=== PATIENT | male | born 1935 | race Caucasian/White ===

== ENCOUNTER → 2018-06-12 12:18 | Outpatient (CLI) | payer MEDICARE, SELFPAY ==
[2017-01-26 07:49] VITALS: BMI 34.6
--- NOTE | 2018-06-12 10:15 | LES_PTH ---
PATIENT: NICOLE CARRASCO LOC: [facility] U#:[id number] AGE/SX: 89/M ROOM: RE06/12/[address]: Dr. Ever Suarez MD : [id number] BED: DIS: SPEC #: [id number] RECD: 06/12/18 12:02 STATUS: CUAUHTEMOC BETITO #: [id number] DRAGAN: 06/12/18 10:[address]: Ever Suarez DEPT: SURGICAL PATHOLOGY RECD BY: Logan Buenrostro ENTERED: 06/12/18 13:15 SP TYPE: Lesion OTHR DR: Dr. 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 Actinic keratosis. See comment. AM:kamran 06/13/18 COMMENT The lesion is completely excised in the planes examined. The lesion measures 4 mm in greatest dimension. There is no evidence of vascular or perineural invasion identified. Clinical correlation is suggested. MICROSCOPIC DESCRIPTION Slides are reviewed. GROSS DESCRIPTION Received is one container labeled with the patient's name and not further designated. The specimen consists of an ellipse of hair bearing excised skin measuring 2.1 x 1.5 x 0.3 cm. The specimen is inked, serially sectioned and totally submitted in one cassette. / AM:kamran 06/12/18 TC:0 CPT: 58191
== END ==
PROVIDERS: Family Provider Family Medicine; PCP Family Medicine; Referring Provider Otolaryngology; Visit Provider Otolaryngology
DX: D23.5 Other benign neoplasm of skin of trunk (principal)
CPT/HCPCS: 88305

== ENCOUNTER → 2019-02-06 | Outpatient (CLI) | payer MEDICARE, SELFPAY ==
[2017-01-26 07:49] VITALS: BMI 34.6
--- NOTE | 2019-02-06 13:09 | RAD_ITS ---
HISTORY: h/o kidney stones. Right sided flank pain x 3 days, frequent urination ADDITIONAL HISTORY: None. COMPARISON: None Technique: Supine abdominal radiograph Number of images including paperwork: 3 FINDINGS: FREE AIR: None detected. BOWEL GAS PATTERN: Nonobstructive. CALCIFICATIONS: Faint densities over the kidneys could be related to small calculi or bowel content. Pelvic calcifications suggestive of phleboliths. ORGANS: No evidence of organomegaly. SOFT TISSUES: Unremarkable. BONES: No acute skeletal findings. RAD/Abdomen Single View IMPRESSION: Questionable renal calculi versus overlying bowel content. CT could further evaluate as clinically warranted. at 2228 Reported and signed by: Kneyatta Lopez MD Electronically Signed: Kenyatta Lopez MD at 22:28 EDT Tel , Service support ,
== END | disposition home or self-care (01) ==
LOC: RAD 12:57
PROVIDERS: Family Provider Family Medicine; PCP Family Medicine; Referring Provider Urology; Visit Provider Urology
DX: N20.0 Calculus of kidney (principal)
CPT/HCPCS: 74018

== ENCOUNTER → 2019-07-16 | Outpatient (CLI) | payer MEDICARE, SELFPAY ==
[2017-01-26 07:49] VITALS: BMI 34.6
== END | disposition home or self-care (01) ==
LOC: LABSPEC 15:55
PROVIDERS: PCP Family Medicine; Referring Provider Urology; Visit Provider Urology
DX: N39.0 Urinary tract infection, site not specified (principal)
CPT/HCPCS: 87086; 87088